=== PATIENT | male | born 1970 | race Caucasian/White ===

== ENCOUNTER 2018-01-23 16:22 | Emergency (ER) | payer OTHER | END 2018-01-23 17:12 | disposition home or self-care (01) | LOC: E/R 16:22 | DX: M54.2 Cervicalgia (principal); I10 Essential (primary) hypertension; E11.9 Type 2 diabetes mellitus without complications | CPT/HCPCS: 99283; Z7502 ==

== ENCOUNTER 2018-01-24 18:46 | Emergency (ER) | payer OTHER | END 2018-01-25 00:40 | disposition home or self-care (01) | LOC: FTE 01-25 00:40 | DX: M54.2 Cervicalgia (principal); E11.9 Type 2 diabetes mellitus without complications; I10 Essential (primary) hypertension | CPT/HCPCS: 72125; 99284-25 ==

== ENCOUNTER 2018-01-28 19:51 | Emergency (ER) | payer SELFPAY, OTHER | END 2018-01-28 23:30 | disposition left against medical advice (07) | LOC: FTE 19:51 | DX: Z53.21 Procedure and treatment not carried out due to patient leaving prior to being seen by health care provider (principal) ==